=== PATIENT | male | born 1960 | race Two or more races ===

== ENCOUNTER 2017-06-02 04:59 | Inpatient (IN) | payer OTHER ==
[~2017-06-02] VITALS: Ht 180.3 cm; Wt 104.3 kg
[2017-06-02] MEDS ORDERED: CELECOXIB 100 MG CAPSULE ONE (05:43)
[2017-06-02] MEDS ORDERED: oxyCODONE HCL SR 10MG TAB.SR.12H PO ONE (05:43)
[2017-06-02] MEDS ORDERED: CEFAZOLIN SODIUM/DEXTROSE,ISO 50 ML IV ONE (05:43)
[2017-06-02] MEDS ORDERED: ACETAMINOPHEN 325 MG TABLET ONE (05:43)
[2017-06-02] MEDS ORDERED: BUPIVACAINE 0.5 % PF 150 MG/30 ML VIAL ONE (06:07)
[2017-06-02] MEDS ORDERED: ANESTHESIA TRAY IN PYXIS 1 EA TRAY MC ONE (06:07)
[2017-06-02] MEDS ORDERED: BACITRACIN 50000 UNITS/VIAL ONE (06:08)
[2017-06-02] MEDS ORDERED: ROCURONIUM BROMIDE 50 MG/5 ML ONE (06:29)
[2017-06-02] MEDS ORDERED: FENTANYL PF 100MCG/2ML AMPUL ONE (06:29)
[2017-06-02] MEDS ORDERED: TRANEXAMIC ACID 3,000 MG in SODIUM CHLORIDE IRRIG SOLUTION 70 ML IR ONE (07:30)
[2017-06-02] MEDS ORDERED: COLACE 250 MG CAPSULE PO PRN (10:00)
[2017-06-02] MEDS ORDERED: ZOFRAN 4mg/2ML IV PRN (10:00)
[2017-06-02] MEDS ORDERED: HYDROCODONE/APAP 5/325MG 1 EACH TABLET PO PRN (10:00)
[2017-06-02] MEDS ORDERED: SENOKOT 8.6 MG TABLET PO PRN (10:00)
[2017-06-02] MEDS ORDERED: DULCOLAX 10 MG/SUPP.RECT RC PRN (10:00)
[2017-06-02] MEDS ORDERED: IV D5/0.45 NACL 1,000 ML IV PRN (10:00)
[2017-06-02] MEDS ORDERED: TYLENOL 650 MG TABLET PO PRN (10:00)
[2017-06-02] MEDS ORDERED: HYDROMORPHONE 1 MG/1 ML DISP.SYRIN IV PRN (11:30)
[2017-06-02] MEDS ORDERED: diphenhydrAMINE HCL 25 MG CAPSULE PO PRN (11:30)
[2017-06-02] MEDS ORDERED: PROMETHAZINE HCL 25 MG/ML AMPUL IM PRN (11:30)
[2017-06-02] MEDS ORDERED: CLONIDINE HCL 0.1 MG TABLET PO PRN (11:30)
[2017-06-02] MEDS ORDERED: oxyCODONE IR immediate release 5 MG PO PRN (11:30)
[2017-06-02] MEDS ORDERED: NALOXONE HCL 0.4 MG/ML AMPUL IV PRN (11:30)
[2017-06-02] MEDS ORDERED: HYDROCODONE/APAP 10/325MG 1 EA TABLET PO PRN (11:30)
[2017-06-02] MEDS ORDERED: MENTHOL/CETYLPYRD (CEPACOL) 1 LOZ LOZENGE MM PRN (11:30)
[2017-06-02] MEDS ORDERED: MAGNESIUM HYDROXIDE 30 ML UDC PO PRN (13:00)
[2017-06-02] MEDS ORDERED: MAG HYDROX/AL HYDROX/SIMETH 30 ML UDC PO PRN (13:00)
[2017-06-02 16:00] VITALS: BP 122/72
[2017-06-02] MEDS: DOCUSATE SODIUM 100 MG CAPSULE PO SCH (16:55)
[2017-06-02] MEDS: ANCEF 1 G in IV D5W 50 ML IV SCH ×2 (16:56→22:53)
[2017-06-02 19:06] LABS: BASOPHILS % (AUTO) 0.1 % (0.0-2.0); HEMATOCRIT 42 % (39-51); HEMOGLOBIN 14.4 g/dL (13.5-17.5); LYMPHOCYTES # (AUTO) 1.9 /CMM (0.8-4.8); LYMPHOCYTES % (AUTO) 11.3 % (20.0-44.0); MEAN CORPUSCULAR HEMOGLOBIN 34 PG (26.0-33.0); MEAN CORPUSCULAR HGB CONC 35 g/dl (31.0-36.0); MEAN CORPUSCULAR VOLUME 98 fL (80-96); MONOCYTES # (AUTO) 0.6 /CMM (0.1-1.30); MONOCYTES % (AUTO) 3.5 % (2.0-12.0); NEUTROPHILS # (AUTO) 14.4 /CMM (1.8-8.9); NEUTROPHILS % (AUTO) 85.1 % (43.0-81.0); PLATELET COUNT (AUTO) 227 /CMM (150-450); RDW COEFFICIENT OF VARIATION 13.7 (11.5-15.0); RED BLOOD CELL COUNT(AUTO) 4.28 MIL/uL (4.5-6.0); WHITE BLOOD COUNT (AUTO) 16.9 K/uL (4.3-11.0)
[2017-06-02 20:00] VITALS: BP 122/72
[2017-06-02 22:00] VITALS: BP 122/72
[2017-06-02] MEDS ORDERED: AMBIEN 5 MG TABLET PO PRN (22:00)
[2017-06-02] MEDS ORDERED: NICOTINE PATCH (21MG) 21 MG PATCH.TD24 TD ONE (22:36)
[2017-06-02] MEDS ORDERED: HYDROMORPHONE 1 MG/1 ML DISP.SYRIN ONE (22:47)
[2017-06-02] MEDS: HYDROMORPHONE 1 MG/1 ML DISP.SYRIN SQ PRN (22:54)
[2017-06-02] MEDS ORDERED: oxyCODONE IR immediate release 5 MG ONE (23:56)
[2017-06-03] MEDS: oxyCODONE IR immediate release 5 MG PO PRN ×5 (00:01→12:35)
[2017-06-03] MEDS ORDERED: NICOTINE PATCH (21MG) 21 MG PATCH.TD24 TD ONE (00:13)
[2017-06-03] MEDS ORDERED: HYDROMORPHONE 1 MG/1 ML DISP.SYRIN ONE ×2 (02:00→05:04)
[2017-06-03] MEDS: HYDROMORPHONE 1 MG/1 ML DISP.SYRIN SQ PRN ×4 (02:07→11:26)
[2017-06-03] MEDS ORDERED: oxyCODONE IR immediate release 5 MG ONE ×2 (03:07→06:02)
[2017-06-03] MEDS ORDERED: HYDR-548 PO ×2 (07:22→13:46)
[2017-06-03] MEDS ORDERED: PANTOPRAZOLE 40 MG TABLET.DR PO SCH (07:30)
[2017-06-03 08:00] VITALS: BP 121/78
[2017-06-03] MEDS: DOCUSATE SODIUM 100 MG CAPSULE PO SCH (08:11)
[2017-06-03] MEDS ORDERED: TAMSULOSIN 0.4 MG CAP.SR.24H PO SCH (09:00)
[2017-06-03] MEDS ORDERED: ASPIRIN 325 MG TABLET PO SCH (09:00)
[2017-06-03] MEDS ORDERED: NICOTINE PATCH (21MG) 21 MG PATCH.TD24 TD SCH (09:00)
== END 2017-06-03 14:00 | disposition home or self-care (01) | DRG 483 ==
LOC: DS 04:59 → MED 09:33
PROVIDERS: ADMIT Specialist; ATTEND Nurse Practitioner Acute Care
PROC: 0LS40ZZ Reposition Left Upper Arm Tendon, Open Approach (ICD-10-PCS; principal; 2017-06-02 06:30)
PROC: 0RRK0J6 Replacement of Left Shoulder Joint with Synthetic Substitute, Humeral Surface, Open Approach (ICD-10-PCS; principal; 2017-06-02 06:30)
DX: M19.012 Primary osteoarthritis, left shoulder (principal); F11.20 Opioid dependence, uncomplicated; E66.9 Obesity, unspecified; F17.210 Nicotine dependence, cigarettes, uncomplicated; G89.4 Chronic pain syndrome; S43.002A Unspecified subluxation of left shoulder joint, initial encounter; X58.XXXA Exposure to other specified factors, initial encounter; Y93.9 Activity, unspecified; Y92.009 Unspecified place in unspecified non-institutional (private) residence as the place of occurrence of the external cause; Z68.32 Body mass index [BMI] 32.0-32.9, adult; S46.012A Strain of muscle(s) and tendon(s) of the rotator cuff of left shoulder, initial encounter
CPT/HCPCS: 36415; 85025-TC; 86850-TC; 86921-TC; 87081-TC; A4217; A4565; A6402; C1713; J0690; J1100; J1170; J2405; J2704; J2710; J3010; J3490; J7060; J7120; Z7610